=== PATIENT | female | born 1975 | race Two or more races ===

== ENCOUNTER 2020-11-16 07:48 | Outpatient (CLI) | payer OTHER ==
[~2020-11-16] VITALS: Ht 165.1 cm; Wt 110.0 kg
[~2020-11-16 07:48] MED LIST: ATIV0.5T; LEXA1TAB
[2020-11-16 08:10] VITALS: BP 141/68
[2020-11-16] MEDS ORDERED: ZYRTTAB8 PO (09:20)
[2020-11-16] MEDS ORDERED: THERTAB52 PO (09:21)
[2020-11-16] MEDS ORDERED: METO1TAB7 PO (09:21)
[2020-11-16] MEDS ORDERED: HAIRTAB10 PO (09:22)
[2020-11-16] MEDS ORDERED: IRON SUCROSE 200 MG in NS 100 ML OVER 1 HR IV ONE (09:30)
[2020-11-16 09:39] VITALS: BP 125/67
[2020-11-16 10:45] VITALS: BP 119/68
[2020-11-16 11:30] VITALS: BP 107/57
== END 2020-11-16 11:30 | disposition home or self-care (01) ==
LOC: M INFU 07:48
PROVIDERS: ATTEND Student in an Organized Health Care Education/Training Program
DX: D50.8 Other iron deficiency anemias (principal); Z91.040 Latex allergy status
CPT/HCPCS: 96365; 96366; J1756

== ENCOUNTER 2020-11-23 07:47 | Outpatient (CLI) | payer OTHER ==
[~2020-11-23] VITALS: Ht 165.1 cm; Wt 110.0 kg
[~2020-11-23 07:47] MED LIST changes: +HAIRTAB10 PO; +METO1TAB7 PO; +THERTAB52 PO; +ZYRTTAB8 PO
[2020-11-23 07:50] VITALS: BP 163/77
[2020-11-23] MEDS ORDERED: IRON SUCROSE 200 MG in NS 100 ML OVER 1 HR IV ONE (08:00)
[2020-11-23] MEDS ORDERED: ACETAMINOPHEN 500 MG TAB PO ONE (08:00)
[2020-11-23 09:30] VITALS: BP 122/73
== END 2020-11-23 09:30 | disposition home or self-care (01) ==
LOC: M INFU 07:47
PROVIDERS: ATTEND Student in an Organized Health Care Education/Training Program
DX: D50.8 Other iron deficiency anemias (principal); Z88.8 Allergy status to other drugs, medicaments and biological substances; Z91.040 Latex allergy status
CPT/HCPCS: 96365; J1756

== ENCOUNTER 2020-11-30 07:57 | Outpatient (CLI) | payer OTHER ==
[~2020-11-30] VITALS: Ht 165.1 cm; Wt 110.0 kg
[2020-11-30 08:00] VITALS: BP 129/64
[2020-11-30] MEDS ORDERED: IRON SUCROSE 200 MG in NS 100 ML OVER 1 HR IV ONE (08:00)
[2020-11-30 08:45] VITALS: BP 103/55
[2020-11-30 09:40] VITALS: BP 105/54
== END 2020-11-30 10:15 | disposition home or self-care (01) ==
LOC: M INFU 07:57
PROVIDERS: ATTEND Student in an Organized Health Care Education/Training Program
DX: D50.8 Other iron deficiency anemias (principal); Z88.8 Allergy status to other drugs, medicaments and biological substances; Z91.040 Latex allergy status
CPT/HCPCS: 96365; J1756

== ENCOUNTER → 2020-12-05 | Outpatient (CLI) | payer OTHER ==
--- NOTE | 2020-12-05 10:39 | PFTRPT ---
Height: 65.00 Inches Weight: 248.00 Lbs BSA: 2.17 Diagnosis: R06.09 DATE: 12/05/2020 ORDERING PHYSICIAN: Dr. Becky Samson Pre and post bronchodilator studies have excellent technical quality. Forced vital capacity is reduced. FEV1 is in proportion. Obstructive index is therefore normal. Expiratory limit of the flow-volume loop does suggest a nonspecific flow rate limitation. At least borderline bronchodilator response is identified. Total lung capacity is normal. Residual volume is in proportion. Diffusing capacity although reduced is appropriate for alveolar volume. Hemoglobin is acceptable at 13. Airway resistance and conductance are normal. IMPRESSION: Nonspecific flow rate limitation with borderline bronchodilator response. Mild reduction in the absolute diffusing capacity is appropriate for alveolar volume. Please correlate clinically. MTDD
== END ==
LOC: M CARPUL 09:40
PROVIDERS: ATTEND Internal Medicine Cardiovascular Disease
DX: R00.2 Palpitations (principal); R06.09 Other forms of dyspnea; E66.01 Morbid (severe) obesity due to excess calories; R94.31 Abnormal electrocardiogram [ECG] [EKG]; I11.9 Hypertensive heart disease without heart failure; K92.1 Melena; E88.81 Metabolic syndrome and other insulin resistance

== ENCOUNTER 2020-12-07 08:11 | Outpatient (CLI) | payer OTHER ==
[~2020-12-07] VITALS: Ht 165.1 cm; Wt 110.0 kg
[2020-12-07 08:15] VITALS: BP 117/57
[2020-12-07] MEDS ORDERED: ACETAMINOPHEN 500 MG TAB PO ONE (08:30)
[2020-12-07] MEDS ORDERED: IRON SUCROSE 200 MG in NS 250 ML IV ONE (08:30)
[2020-12-07 10:45] VITALS: BP 112/68
== END 2020-12-07 10:45 | disposition home or self-care (01) ==
LOC: M INFU 08:11
PROVIDERS: ATTEND Student in an Organized Health Care Education/Training Program
DX: D50.8 Other iron deficiency anemias (principal); Z88.8 Allergy status to other drugs, medicaments and biological substances; Z91.040 Latex allergy status
CPT/HCPCS: 96365; J1756

== ENCOUNTER 2020-12-14 07:56 | Outpatient (CLI) | payer OTHER ==
[~2020-12-14] VITALS: Ht 165.1 cm; Wt 110.0 kg
[~2020-12-14 07:56] MED LIST changes: +ACETAMINOPHEN 500 MG TAB PO ONE
[2020-12-14 08:00] VITALS: BP 109/57
[2020-12-14] MEDS ORDERED: IRON SUCROSE 200 MG in NS 100 ML OVER 1 HR IV ONE (08:00)
[2020-12-14 10:20] VITALS: BP 98/56
== END 2020-12-14 10:20 | disposition home or self-care (01) ==
LOC: M INFU 07:56
PROVIDERS: ATTEND Student in an Organized Health Care Education/Training Program
DX: D50.8 Other iron deficiency anemias (principal); Z88.8 Allergy status to other drugs, medicaments and biological substances; Z91.040 Latex allergy status
CPT/HCPCS: 96365; 96366; J1756

== ENCOUNTER 2020-12-17 08:11 | Day surgery (SDC) | payer OTHER ==
[~2020-12-17] VITALS: Ht 162.6 cm; Wt 114.0 kg
[~2020-12-17 08:11] MED LIST changes: -ACETAMINOPHEN 500 MG TAB PO ONE; +NS 1,000 ML IV ONE
[2020-12-17] MEDS ORDERED: LIDOCAINE 2% 100MG/5ML SDV (FOR ANES.) As Ordered ONE (08:15)
[2020-12-17] MEDS ORDERED: propofoL 200 MG/20 ML VIAL As Ordered ONE ×2 (08:15→09:55)
--- NOTE | 2020-12-17 09:49 | ROOR ---
Patient Name: Yoanna Zamudio Procedure Date: 12/17/2020 9:32 AM Date of : 1975 Age: 45 Room: [facility] Gender: Female Note Status: Finalized Procedure: Upper Endoscopy + Biopsies Indications: Unexplained iron deficiency anemia, Family history of gastric cancer Providers: Richie Garcia MD Referring MD: RYAN DAVIS MD Requesting Provider: Medicines: Monitored Anesthesia Care Complications: No immediate complications. Procedure: Pre-Anesthesia Assessment: - The heart rate, respiratory rate, oxygen saturations, blood pressure, adequacy of pulmonary ventilation, and response to care were monitored throughout the procedure. The Endoscope was introduced through the mouth, and advanced to the second part of duodenum. The upper GI endoscopy was accomplished without difficulty. The patient tolerated the procedure well. Findings: The Z-line was regular and was found 35 cm from the incisors. No other significant abnormalities were identified in a careful examination of the stomach. Biopsies were taken with a cold forceps in the gastric antrum for Helicobacter pylori testing. The exam of the duodenum was otherwise normal. Biopsies for histology were taken with a cold forceps in the first portion of the duodenum for evaluation of celiac disease. The exam was otherwise without abnormality. Impression: - Z-line regular, 35 cm from the incisors. - The examination was otherwise normal. - Biopsies were taken with a cold forceps for Helicobacter pylori testing. - Biopsies were taken with a cold forceps for evaluation of celiac disease. - The examination was otherwise normal. Recommendation: - Patient has a contact number available for emergencies. The signs and symptoms of potential delayed complications were discussed with the patient. Return to normal activities tomorrow. Written discharge instructions were provided to the patient. - High fiber diet. - Discharge patient to home. - Follow an antireflux regimen. - Continue present medications. - Await pathology results. - Telephone GI clinic for pathology results in 1 week. - Return to referring physician. - The findings and recommendations were discussed with the patient. Procedure Code(s): --- Professional --- 65119, Esophagogastroduodenoscopy, flexible, transoral; with biopsy, single or multiple Diagnosis Code(s): --- Professional --- D50.9, Iron deficiency anemia, unspecified Z80.0, Family history of malignant neoplasm of digestive organs CPT copyright 2019 [employer]. All rights reserved. The codes documented in this report are preliminary and upon hcc coders review may be revised to meet current compliance requirements. Richie Garcia MD Richie Garcia MD 12/17/2020 9:49:10 AM Electronically signed by Richie Garcia MD Number of Addenda: 0 Note Initiated On: 12/17/2020 9:32 AM Estimated Blood Loss: Estimated blood loss: none.
--- NOTE | 2020-12-17 10:06 | ROOR ---
Patient Name: Yoanna Zamudio Procedure Date: 12/17/2020 9:32 AM Date of : 1975 Age: 45 Room: [facility] Gender: Female Note Status: Finalized Procedure: Total Colonoscopy to Cecum Indications: Screening for colorectal malignant neoplasm, Family history of colon cancer Providers: Richie Garcia MD Referring MD: RYAN DAVIS MD Requesting Provider: Medicines: Monitored Anesthesia Care Complications: No immediate complications. Procedure: Pre-Anesthesia Assessment: - The heart rate, respiratory rate, oxygen saturations, blood pressure, adequacy of pulmonary ventilation, and response to care were monitored throughout the procedure. The Colonoscope was introduced through the anus and advanced to the cecum, identified by appendiceal orifice and ileocecal valve. The colonoscopy was performed without difficulty. The patient tolerated the procedure well. The quality of the bowel preparation was excellent. Findings: The perianal and digital rectal examinations were normal. No other significant abnormalities were identified in a careful examination of the remainder of the colon. The exam was otherwise without abnormality on direct and retroflexion views. Impression: - The examination was otherwise normal on direct and retroflexion views. - No specimens collected. - The exam was otherwise normal to the cecum. Recommendation: - Patient has a contact number available for emergencies. The signs and symptoms of potential delayed complications were discussed with the patient. Return to normal activities tomorrow. Written discharge instructions were provided to the patient. - High fiber diet. - Discharge patient to home. - Continue present medications. - Repeat colonoscopy in 5 years for screening purposes. - Return to referring physician. - The findings and recommendations were discussed with the patient. Procedure Code(s): --- Professional --- 20231, Colonoscopy, flexible; diagnostic, including collection of specimen(s) by brushing or washing, when performed (separate procedure) Diagnosis Code(s): --- Professional --- Z12.11, Encounter for screening for malignant neoplasm of colon Z80.0, Family history of malignant neoplasm of digestive organs CPT copyright 2019 [employer]. All rights reserved. The codes documented in this report are preliminary and upon tower foreman review may be revised to meet current compliance requirements. Richie Garcia MD Richie Garcia MD 12/17/2020 10:05:34 AM Electronically signed by Richie Garcia MD Number of Addenda: 0 Note Initiated On: 12/17/2020 9:32 AM Estimated Blood Loss: Estimated blood loss: none.
[2020-12-17 10:25] VITALS: BP 110/53
== END 2020-12-17 10:36 | disposition home or self-care (01) ==
LOC: M OPP 08:11
PROVIDERS: ATTEND Internal Medicine Gastroenterology
DX: Z12.11 Encounter for screening for malignant neoplasm of colon (principal); Z80.0 Family history of malignant neoplasm of digestive organs; D50.9 Iron deficiency anemia, unspecified; K29.70 Gastritis, unspecified, without bleeding; D13.39 Benign neoplasm of other parts of small intestine; Z87.891 Personal history of nicotine dependence; Z88.5 Allergy status to narcotic agent; Z91.040 Latex allergy status; Z79.899 Other long term (current) drug therapy

== ENCOUNTER → 2021-01-24 | Outpatient (CLI) | payer OTHER ==
[~2021-01-24] MED LIST changes: -NS 1,000 ML IV ONE
--- NOTE | 2021-01-24 10:19 | REP ---
INDICATION: MILD PERSISTENT ASTHMA, UNCOMPLICATED COMPARISON: 12/18/2009 TECHNIQUE: PA and lateral. FINDINGS: The mediastinum and cardiac silhouette are normal. The lung sheikh are clear and without acute consolidation, effusion, or pneumothorax. The skeletal structures are intact and normal. IMPRESSION: No acute cardiopulmonary process. <Electronically signed by Bam Simpson > 01/24/21 0414
== END ==
LOC: M RAD 10:00
PROVIDERS: ATTEND Nurse Practitioner Adult Health
DX: J45.30 Mild persistent asthma, uncomplicated (principal)

== ENCOUNTER → 2021-03-27 | Outpatient (CLI) | payer OTHER | LOC: M CARPUL 08:54 | PROVIDERS: ATTEND Internal Medicine Cardiovascular Disease | DX: R00.2 Palpitations (principal); R06.09 Other forms of dyspnea ==

== ENCOUNTER 2024-11-24 06:19 | Day surgery (SDC) | payer OTHER ==
[~2024-11-24] VITALS: Ht 162.6 cm; Wt 72.6 kg
[~2024-11-24 06:19] MED LIST changes: +B-12100010 PO; +CALC-190 PO; +GLYCOPYRROLATE INJ 0.2 MG/ML 2 ML VIAL As Ordered ONE; +KETOROLAC 60MG 2ML VIAL As Ordered ONE; +LIDOCAINE 2% 100MG/5ML SDV (FOR ANES.) As Ordered ONE; +ONDANSETRON 4MG 2ML VIAL As Ordered ONE; +ROCURONIUM BROMIDE 50MG/5ML VIAL As Ordered ONE; +SUGAMMADEX SODIUM 500 MG/5 ML VIAL (BRIDION) As Ordered ONE; +VITA500C24 PO; +propofoL 200 MG/20 ML VIAL As Ordered ONE
[2024-11-24] MEDS: LR 1,000 ML IV SCH (06:20)
[2024-11-24] MEDS ORDERED: METOCLOPRAMIDE INJ 10MG/2ML VIAL As Ordered ONE (06:20)
[2024-11-24] MEDS ORDERED: HYDROmorphone HCL 2MG/ML 1ML VIAL As Ordered ONE (06:22)
[2024-11-24] MEDS ORDERED: MIDAZOLAM INJ 2MG/2ML VIAL As Ordered ONE (06:23)
[2024-11-24] MEDS ORDERED: ACETAMINOPHEN 1000MG/100ML IV BAG As Ordered ONE (06:31)
[2024-11-24 07:07] LABS: HEMATOCRIT 35.5 % (36.0-47.0); MEAN CORPUSCULAR HEMOGLOBIN 26.3 pg (27.0-33.0); MEAN CORPUSCULAR VOLUME 84.7 fl (80.0-96.0); PLATELET COUNT, AUTOMATED 350 10^3/uL (150-450); RED BLOOD COUNT 4.19 10^6/uL (4.00-5.40); WHITE BLOOD COUNT 3.5 10^3/uL (4.0-10.0)
[2024-11-24] MEDS: ceFAZolin SOD 2 GM in IV 1 EA IV ONE (07:45)
[2024-11-24] MEDS: metroNIDAZOLE 500 MG in IV 1 EA IV ONE (07:52)
[2024-11-24] MEDS: ENOXAPARIN 40MG/0.4ML SYRINGE (J1650 PER 10MG) SC ONE (07:56)
[2024-11-24] MEDS: BOTOX THERAPEUTIC 100 UNIT VIAL As Ordered ONE (08:19)
[2024-11-24] MEDS: FLUORESCEIN 10% (100MG/ML) 5ML VIAL As Ordered ONE (10:23)
[2024-11-24] MEDS ORDERED: oxyCODONE 5MG TAB PO PRN (11:00)
[2024-11-24] MEDS: HYDROMORPHONE HCL 0.5 MG/ 0.5 ML SYRINGE IV PRN (11:01)
[2024-11-24] MEDS: ONDANSETRON 4MG 2ML VIAL IV PRN (11:01)
[2024-11-24] MEDS: oxyCODONE 5MG TAB PO PRN (11:02)
[2024-11-24] MEDS: PROMETHAZINE 25MG/ML 1ML VIAL IV ONE (11:55)
[2024-11-24 13:17] VITALS: BP 121/64; TEMP 97.5; O2SAT 99
== END 2024-11-24 14:32 | disposition home or self-care (01) ==
LOC: M SDC 06:19
PROVIDERS: ATTEND Obstetrics & Gynecology
DX: N93.9 Abnormal uterine and vaginal bleeding, unspecified (principal); N80.00 Endometriosis of the uterus, unspecified; D25.0 Submucous leiomyoma of uterus; D25.2 Subserosal leiomyoma of uterus; N70.11 Chronic salpingitis; R00.2 Palpitations; Z79.899 Other long term (current) drug therapy; Z88.5 Allergy status to narcotic agent; Z91.040 Latex allergy status; Z98.84 Bariatric surgery status; Z90.89 Acquired absence of other organs
CPT/HCPCS: 36415; 58571; 81025; 85027; 86850; 86900; 86901; 88307; J0131; J0665; J0690; J1100; J1171; J1596; J1650; J1836; J1885; J2250; J2405; J2550; J2765

== ENCOUNTER 2024-12-12 08:02 | Outpatient (CLI) | payer OTHER ==
[~2024-12-12] VITALS: Ht 162.6 cm; Wt 72.2 kg
[~2024-12-12 08:02] MED LIST changes: +ALBUTEROL SULFATE 2.5MG/0.5ML INH NEB SOLN INH PRN; +EPINEPHrine INJ 1 MG/ML 1ML AMP IM PRN; -GLYCOPYRROLATE INJ 0.2 MG/ML 2 ML VIAL As Ordered ONE; -KETOROLAC 60MG 2ML VIAL As Ordered ONE; -LIDOCAINE 2% 100MG/5ML SDV (FOR ANES.) As Ordered ONE; -ONDANSETRON 4MG 2ML VIAL As Ordered ONE; -ROCURONIUM BROMIDE 50MG/5ML VIAL As Ordered ONE; -SUGAMMADEX SODIUM 500 MG/5 ML VIAL (BRIDION) As Ordered ONE; +diphenhydrAMINE 50MG/ML VIAL IV PRN; +methylPREDNISolone 125MG 2ML VIAL IV PRN; -propofoL 200 MG/20 ML VIAL As Ordered ONE
[2024-12-12 08:10] VITALS: BP 129/66; O2SAT 99
[2024-12-12] MEDS: FERRIC CARBOXYMALTOSE 750 MG (VIAL MATE) IN 100ML NS IV ONE (08:17)
[2024-12-12 09:30] VITALS: BP 109/61; O2SAT 99
== END 2024-12-12 09:30 ==
LOC: M INFU 08:02
PROVIDERS: ATTEND Obstetrics & Gynecology
DX: D64.9 Anemia, unspecified (principal); Z88.8 Allergy status to other drugs, medicaments and biological substances; Z91.040 Latex allergy status
CPT/HCPCS: 96365; J1439

== ENCOUNTER 2024-12-19 08:50 | Outpatient (CLI) | payer OTHER ==
[~2024-12-19] VITALS: Ht 162.6 cm; Wt 72.0 kg
[~2024-12-19 08:50] MED LIST changes: -ALBUTEROL SULFATE 2.5MG/0.5ML INH NEB SOLN INH PRN; -EPINEPHrine INJ 1 MG/ML 1ML AMP IM PRN; -diphenhydrAMINE 50MG/ML VIAL IV PRN; -methylPREDNISolone 125MG 2ML VIAL IV PRN
[2024-12-19] MEDS ORDERED: EPINEPHrine INJ 1 MG/ML 1ML AMP IM PRN (09:00)
[2024-12-19] MEDS ORDERED: ALBUTEROL SULFATE 2.5MG/0.5ML INH NEB SOLN INH PRN (09:00)
[2024-12-19] MEDS ORDERED: methylPREDNISolone 125MG 2ML VIAL IV PRN (09:00)
[2024-12-19] MEDS ORDERED: diphenhydrAMINE 50MG/ML VIAL IV PRN (09:00)
[2024-12-19 09:10] VITALS: BP 128/68; O2SAT 99
[2024-12-19] MEDS: FERRIC CARBOXYMALTOSE 750 MG (VIAL MATE) IN 100ML NS IV ONE (09:13)
[2024-12-19 10:00] VITALS: BP 114/62; O2SAT 100
== END 2024-12-19 10:00 ==
LOC: M INFU 08:50
PROVIDERS: ATTEND Obstetrics & Gynecology
DX: D64.9 Anemia, unspecified (principal); Z88.5 Allergy status to narcotic agent; Z91.040 Latex allergy status
CPT/HCPCS: 96365; J1439